=== PATIENT | female | born 1955 | race African-American/Black ===

== ENCOUNTER → 2020-01-17 13:47 | Outpatient (CLI) | payer OTHER | END | disposition home or self-care (01) | LOC: D.NM 13:47 | PROVIDERS: ATTEND Internal Medicine Hematology & Oncology | DX: R59.1 Generalized enlarged lymph nodes (principal); D64.9 Anemia, unspecified; E86.0 Dehydration; Z51.11 Encounter for antineoplastic chemotherapy ==

== ENCOUNTER → 2020-06-01 09:52 | Outpatient (CLI) | payer OTHER | END | disposition home or self-care (01) | LOC: D.RAD 09:52 | PROVIDERS: ATTEND Pediatrics | DX: Z02.71 Encounter for disability determination (principal) ==